=== PATIENT | female | born 1995 | race Caucasian/White ===

== ENCOUNTER 2023-04-13 09:38 | Emergency (ER) | payer OTHER ==
[2023-04-13 09:55] VITALS: BP 134/78; PULSE 74; RESP 16; TEMP 98.4; BMI 28.1
[2023-04-13 11:53] LABS: HCG,QUALITATIVE URINE Negative
[2023-04-13 12:00] LABS: EPI CELLS 27 /uL (0-25.1); HYALINE CASTS 0 /uL (0-3.1); PH,URINE 6.5 (5.0-8.0); URINE APPEARANCE CLEAR; URINE BACTERIA 195 /uL (0-1359); URINE BILIRUBIN NEGATIVE (NEGATIVE); URINE COLOR YELLOW; URINE GLUCOSE (UA) NEGATIVE (NEGATIVE); URINE KETONE NEGATIVE (NEGATIVE); URINE LEUK ESTERASE 3+ (NEGATIVE); URINE NITRITE NEGATIVE (NEGATIVE); URINE PROTEIN NEGATIVE (NEGATIVE); URINE RBC 3 /uL (0-23.9); URINE UROBILINOGEN 0.2 mg/dL (0.2-1.0); URINE WBC 10 /uL (0-25.8)
== END 2023-04-13 12:48 | disposition home or self-care (01) ==
LOC: JERFT 09:38 → JER 09:38 → JERFT 12:48
DX: N89.8 Other specified noninflammatory disorders of vagina (principal); L29.2 Pruritus vulvae; B37.31 Acute candidiasis of vulva and vagina
CPT/HCPCS: 36415; 81003; 84703; 87070; 87077; 87086; 87205; 87491; 87591; 87661; 99283-25

== ENCOUNTER 2023-04-25 19:53 | Emergency (ER) | payer OTHER ==
[2023-04-25 20:06] VITALS: BP 116/62; PULSE 73; RESP 18; TEMP 98.4; BMI 26.3
[2023-04-25] MEDS ORDERED: FLUCONAZOLE 50 MG TABLET PO ONE (22:13)
[2023-04-25] MEDS ORDERED: metroNIDAZOLE 500 MG TABLET PO ONE (22:14)
[2023-04-25] MEDS ORDERED: FLUCONAZOLE 150 MG TABLET PO ONE (22:57)
[2023-04-25] MEDS ORDERED: metroNIDAZOLE 250 MG TABLET ONE (22:57)
[2023-04-25 23:03] LABS: EPI CELLS 29 /uL (0-25.1); HYALINE CASTS 0 /uL (0-3.1); PH,URINE 6.5 (5.0-8.0); URINE APPEARANCE CLEAR; URINE BACTERIA 127 /uL (0-1359); URINE BILIRUBIN NEGATIVE (NEGATIVE); URINE COLOR YELLOW; URINE GLUCOSE (UA) NEGATIVE (NEGATIVE); URINE KETONE NEGATIVE (NEGATIVE); URINE LEUK ESTERASE 3+ (NEGATIVE); URINE NITRITE NEGATIVE (NEGATIVE); URINE PROTEIN NEGATIVE (NEGATIVE); URINE RBC 6 /uL (0-23.9); URINE UROBILINOGEN 0.2 mg/dL (0.2-1.0); URINE WBC 8 /uL (0-25.8)
== END 2023-04-25 23:15 | disposition home or self-care (01) ==
LOC: JERFT 19:53
DX: L29.2 Pruritus vulvae (principal); N89.8 Other specified noninflammatory disorders of vagina; R05.9 Cough, unspecified; B37.31 Acute candidiasis of vulva and vagina
CPT/HCPCS: 81003; 84703; 87077; 87086; 99284-25